=== PATIENT | female | born 1985 | race African-American/Black ===

== ENCOUNTER 2017-09-16 18:09 | Emergency (ER) | payer OTHER ==
[~2017-09-16] VITALS: Ht 167.6 cm; Wt 122.5 kg
[~2017-09-16 18:09] MED LIST: ADIPEX-P37.5 MG PO; CIPROFLOXACIN500 M1 PO; DOXYCYCLINE 10100 MG PO; FLAGYL500 MG PO; FLEXERIL PO; GRISEOFULVIN500 MG PO; HYDROXYZINE HCL25 M1 PO; IBUPROFEN 600600 M1; IBUPROFEN 600600 M1 PO; IBUPROFEN 800800 MG PO; IRON325 PO; KEFLEX500 MG PO; LANOLIN56 GM; LORTAB 5 MG/5001 TA1 PO; LOTRIMIN30 GM TP; MEDROLDOSEPACK PO; NAPROSYN500 MG PO; NOHOMEMEDICATIONS; NORCO 5-325 TA1 EACH; NORCO 5-325 TA1 EACH PO; PHENERGAN 25 MG25 M1 PO; PREDNISONE 5 MG5 MG PO; PRENATAL COMPL1 EACH PO; SENOKOT-S1 TA1; TRINATE TABLET1 TAB PO; TYLENOL325 MG PO; ULTRAM 50MG TAB50 MG PO; ZANTAC 150MG T150 MG PO; ZOFRAN ODT4 MG PO; ZOFRAN4 MG PO; [UNRECOGNIZED DRUG - OTHER] PO
[2017-09-16] MEDS ORDERED: ACYCLOVIR 400400 MG PO (20:24)
[2017-09-16] MEDS ORDERED: IBUPROFEN 600600 M1 PO (20:24)
[2017-09-16] MEDS ORDERED: NORCO 5-325 TA1 EACH PO (20:24)
[2017-09-16 20:30] VITALS: BP 157/96
== END 2017-09-16 20:30 | disposition home or self-care (01) ==
LOC: ER 18:09
DX: B02.9 Zoster without complications (principal)